=== PATIENT | female | born 1960 | race Caucasian/White ===

== ENCOUNTER 2016-07-10 19:08 | Emergency (ER) | payer OTHER ==
[~2016-07-10] VITALS: Ht 170.2 cm; Wt 58.0 kg
[~2016-07-10 19:08] MED LIST changes: -HYDR-3533 PO; -NOVOLOGSS IMPLANT
[2016-07-10 19:09] VITALS: BP 165/70; PULSE 88; RESP 16; TEMP 98.1; O2SAT 96
--- NOTE | 2016-07-10 20:16 | PD ---
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 She states that her knee swelled up immediately. She took 2 Aleve without relief. She states the pain is moderate but can be more severe with movement and flexing of the knee. She has had some relief with elevation and ice. She denies striking her head. No neck or back pain. No other extremity injury. PFSH Past Medical History Narrative Medical IDDM with insulin pump, hypothyroidism, hypertension, hypercholesterolemia Cancer: No Cardiovascular Problems: No Diabetes: Yes (TYPE I DIABETES) Patient Takes Glucophage: No Endocrine: Yes Genitourinary: No Hepatitis: No Hiatal Hernia: No Hypertension: Yes (SITUATIONAL ) Immune Disorder: No Musculoskeletal: No Neurologic: No Psychiatric: No Reproductive: No Respiratory: No Thyroid Disease: Yes (HYPOTHYROID) Tetanus Vaccination: < 5 Years ?: Not Past Surgical History Narrative Surgical Insulin pump, tonsillectomy, left breast lumpectomy, benign Abdominal Surgery: No AICD: No Body Medical Devices: [employer] INSULIN PUMP Cardiac Surgery: No Ear Surgery: No Endocrine Surgery: No Eye Surgery: No Gynecologic Surgery: No Joint Replacement: No Oral Surgery: Yes (TONSILLECTOMY ) Pacemaker: No Thoracic Surgery: Yes (LEFT BREAST EXCISION FIBROUS TISSUE ) Other Surgery: Yes (LEFT BREAST BIOPSY) Social History Alcohol Use: No Tobacco Use: No Substance Use: No Allergies-Medications (Allergen,Severity, Reaction): Coded Allergies: No Known Allergies (Unverified , 07/10/16) Reported Meds & Prescriptions Reported Meds & Active Scripts Active Lortab (Hydrocodone-Acetaminophen) 5-325 Mg Tab 1 Tab PO Q4H PRN Reported Melatonin 10 Mg Tab 10 Mg PO HS PRN Co Q 10 (Coenzyme Q10 (Ubidecarenone)) 100 Mg Cap EVERY OTHER DAY Vitamin D3 (Cholecalciferol) 2,000 Unit Cap 2,000 Units PO DAILY Lexapro (Escitalopram Oxalate) 10 Mg Tab 15 Mg PO DAILY Estradiol 0.5 Mg Tab 1 Mg PO DAILY Novolog Inj (Insulin Aspart) 1,000 Unit/10 Ml Vial 30 Units SQ sliding scale as directed Synthroid (Levothyroxine Sodium) 88 Mcg Tab 75 Mcg PO DAILY Lisinopril 20 Mg Tab 20 Mg PO DIRECTED saturday, saturday, saturday, saturday Provera (Medroxyprogesterone Acetate) 2.5 Mg Tab 2.5 Mg PO DAILY Start day 21 Zocor (Simvastatin) 20 Mg Tab 20 Mg PO EVERY OTHER DAY Review of Systems Except as stated in HPI: all other systems reviewed are Neg Musculoskeletal: Positive: Arthralgias, Limited ROM, Edema, Pain, No: Myalgias , Weakness, Cramping Physical Exam Narrative GENERAL: Well-developed, well-nourished in no apparent distress. Nontoxic appearing. HEAD: Normocephalic, atraumatic. EYES: Pupils equal round and reactive. Extraocular motions intact. No scleral icterus. No injection or drainage. ENT: Nose clear. Throat without erythema, tonsillar hypertrophy or exudate. Uvula midline. Airway patent. NECK: Trachea midline. Supple, nontender, moves head freely. No central bony tenderness or spasm. CARDIOVASCULAR: Regular rate and rhythm without murmurs, gallops, or rubs. RESPIRATORY: Clear to auscultation. Breath sounds equal bilaterally. No wheezes , rales, or rhonchi. GASTROINTESTINAL: Abdomen soft, non-tender, nondistended. No hepato-splenomegaly , or palpable masses. No guarding. EXTREMITIES: No clubbing, cyanosis. Both upper extremities as well as a left lower extremity is unremarkable for acute bony tenderness or deformity. The right lower extremity reveals a joint effusion in the knee. She has full extension but has limited flexion due to pain. There is no anterior posterior draw. There is no medial lateral collateral ligament instability. She does have pain over the patella. No pain in the hip, ankle or foot. She has intact sensation with good distal pulses. BACK: Nontender without deformity. No flank tenderness. NEUROLOGICAL: Awake, alert and oriented x 3 .Cranial nerves grossly intact. Motor and sensory grossly within normal limits. Normal speech. Data Data Last Documented VS Vital Signs Date Time Temp Pulse Resp B/P Pulse Ox O2 Delivery O2 Flow Rate FiO2 07/10/16 19:09 98.1 88 16 165/70 96 Room Air Orders Knee, Complete (4vws) (07/10/16 20:13) Ice/Cold Pack (07/10/16 20:13) Splint Or Brace Apply/Monitor (07/10/16 20:43) Crutches (07/10/16 20:43) Acetamin-Hydrocod 325-5 Mg ([place] 5-325 (07/10/16 20:45) MDM Medical Decision Making Medical Screen Exam Complete: Yes Emergency Medical Condition: Yes Medical Record Reviewed: Yes Interpretation(s) Right knee: Positive patellar fracture with slight distraction in joint effusion. Differential Diagnosis MDM: High Differential diagnoses: Fracture, sprain, strain, dislocation, contusion, neurovascular injury Narrative Course X-ray of the right knee, ice pack applied. X-ray reveals a patellar fracture. Patient placed in a CKS, crutches, Lortab 5 a grams by mouth for pain. This right patellar fracture Diagnosis Primary Impression: Right patella fracture Patient Instructions: General Instructions Departure Forms: Tests/Procedures, Work Release Special Instructions: No work 3 days. Additional Instructions: Rest. Elevation. Ice packs for the next 3 days. Knee immobilizer and crutches. No weight-bearing. Medications as directed Follow-up with an orthopedist within the next 2-3 days. Return to the ER if any problems Med/Other Pt SpecificInfo: Prescription(s) given Scripts Hydrocodone-Acetaminophen (Lortab)5-325 Mg Tab1 Tab PO Q4H PRN (PAIN) #20 TAB Prov:Elmer Abel MD 07/10/16 Disposition: 01 DISCHARGE HOME Condition: Stable Pedro Christopher Jul 10, 2016 20:16
--- NOTE | 2016-07-10 20:38 | RADRPT ---
EXAM DATE/TIME: 07/10/2016 20:29 [facility] COMPARISON: No previous studies available for comparison. INDICATIONS : Fell today. MEDICAL HISTORY : None. SURGICAL HISTORY : None. ENCOUNTER: Initial ACUITY: 1 day PAIN SCORE: 2/10 LOCATION: Right anterior knee FINDINGS: Slightly distracted comminuted fracture of the patella with lipohemarthrosis. No other fractures are seen. Normal bone density. CONCLUSION: Patellar fracture with associated effusion. Kenton Garcia MD on July 10, 2016 at 20:37 Board Certified Radiologist. This report was verified electronically.
[2016-07-10] MEDS ORDERED: HYDR-3533 PO (20:43)
[2016-07-10] MEDS ORDERED: ACETAMINOPHEN/HYDROcodone 325 MG/5 MG TAB PO ONE (20:45)
[2016-12-25] MEDS ORDERED: NOVOLOGSS IMPLANT (17:21)
== END 2016-07-10 21:33 | disposition home or self-care (01) ==
LOC: NEPB 19:08
DX: S82.001A Unspecified fracture of right patella, initial encounter for closed fracture (principal); W01.0XXA Fall on same level from slipping, tripping and stumbling without subsequent striking against object, initial encounter
CPT/HCPCS: 73564; 99283; E0113; L1830

== ENCOUNTER → 2016-07-10 | Outpatient (CLI) | payer OTHER ==
[~2016-07-10] MED LIST: CO Q100C9; ESTR0.5T PO; HYDR-3533 PO; LEXA10TA PO; LISI-515 PO; MEDR2.5 PO; MELA1TAB18 PO; NOVOLOGP2 SQ; NOVOLOGSS IMPLANT; SYNT88TA PO; VITA2000 PO; ZOCO20TA PO
[2016-07-10 07:47] LABS: AUTOMATED NEUTROPHIL # 2.4 TH/MM3 (1.8-7.7); BASOPHIL % 0.4 % (0.0-2.0); EOSINOPHIL # 0.1 TH/MM3 (0-0.4); EOSINOPHIL % 3.1 % (0.0-4.0); HEMO FLAGS DIFF FINAL; LYMPH % 31.3 % (9.0-44.0); LYMPHOCYTE # 1.3 TH/MM3 (1.0-4.8); MEAN CELL VOLUME 87.8 FL (80.0-100.0); MEAN CORPUSCULAR HEMOGLOBIN 29.1 PG (27.0-34.0); MEAN CORPUSCULAR HGB CONC 33.1 % (32.0-36.0); MONO % 7.4 % (0.0-8.0); NEUT % 57.8 % (16.0-70.0); PLATELET COUNT 225 TH/MM3 (150-450); RED BLOOD COUNT 4.56 MIL/MM3 (4.00-5.30); RED CELL DISTRIBUTION WIDTH 13.5 % (11.6-17.2); WHITE BLOOD COUNT 4.1 TH/MM3 (4.0-11.0)
[2016-07-10 07:48] LABS: BLOOD, URINE NEG (NEG); GLUCOSE,URINE NEG (NEG); KETONE, URINE NEG (NEG); MUCUS URINE FEW /lpf (OCC); NITRITE,URINE NEG (NEG); PH, URINE 5.5 (5.0-8.5); SQUAMOUS EPITHELIAL CELL URINE 1 /hpf (0-5); URINE COLOR YELLOW (YELLW/STRAW)
[2016-07-10 07:49] LABS: COMMENT (UR) CULT NOT INDICATED; CULTURE IF INDICATED CULT NOT INDICATED
[2016-07-10 08:23] LABS: ALKALINE PHOSPHATASE 91 U/L (45-117); ALT (GPT) 18 U/L (10-53); ANION GAP 7 MEQ/L (5-15); AST (GOT) 10 U/L (15-37); BICARBONATE 30.9 MEQ/L (21.0-32.0); BLOOD UREA NITROGEN 15 MG/DL (7-18); CHLORIDE 101 MEQ/L (98-107); FREE T4 1.19 NG/DL (0.76-1.46); GLOMERULAR FILTRATION RATE 95 ML/MIN (>89); GLUCOSE,FASTING 138 MG/DL (74-99); HDL CHOLESTEROL 110.9 MG/DL (40.0-60.0); LDL CHOLESTEROL 92 MG/DL (0-99); POTASSIUM 3.7 MEQ/L (3.5-5.1); SODIUM (NA) 139 MEQ/L (136-145); TOTAL BILIRUBIN ADULT 0.5 MG/DL (0.2-1.0)
[2016-07-10 14:14] LABS: HEMOGLOBIN A1b 0.7 %; HEMOGLOBIN Ao 83.9 %; HEMOGLOBIN F 0.9 %; HEMOGLOBIN LA1C 2.1 %; HEMOGLOBIN P3 3.9 %
== END ==
LOC: CLAB 07:13
PROVIDERS: ATTEND Internal Medicine
DX: E11.9 Type 2 diabetes mellitus without complications (principal); E78.00 Pure hypercholesterolemia, unspecified; E03.9 Hypothyroidism, unspecified
CPT/HCPCS: 36415; 80053; 80061; 81001; 82043; 83036; 84439; 84443; 85025

== ENCOUNTER → 2016-12-25 | Outpatient (CLI) | payer OTHER ==
[~2016-12-25] MED LIST changes: +NOVOLOGSS IMPLANT
[2016-12-25 07:51] LABS: HEMATOCRIT 38.4 % (35.0-46.0); MEAN CELL VOLUME 88.4 FL (80.0-100.0); MEAN CORPUSCULAR HEMOGLOBIN 29.4 PG (27.0-34.0); MEAN CORPUSCULAR HGB CONC 33.3 % (32.0-36.0); PLATELET COUNT 262 TH/MM3 (150-450); RED BLOOD COUNT 4.34 MIL/MM3 (4.00-5.30); RED CELL DISTRIBUTION WIDTH 14.1 % (11.6-17.2); REVIEW FLAG FINAL; WHITE BLOOD COUNT 4.1 TH/MM3 (4.0-11.0)
[2016-12-25 08:13] LABS: ANION GAP 5 MEQ/L (5-15); BLOOD UREA NITROGEN 13 MG/DL (7-18); CHLORIDE 102 MEQ/L (98-107); GLOMERULAR FILTRATION RATE 95 ML/MIN (>89); GLUCOSE,FASTING 184 MG/DL (74-99); RHEUMATOID FACTOR TRIGGER LESS THAN 10.0 IU/ML (0.0-14.9); SODIUM (NA) 138 MEQ/L (136-145)
[2016-12-25 08:36] LABS: CREATINE KINASE 54 U/L (26-192)
== END ==
LOC: CLAB 07:28
PROVIDERS: ATTEND Physical Medicine & Rehabilitation
DX: M25.50 Pain in unspecified joint (principal)
CPT/HCPCS: 36415; 80048; 82550; 85027; 86140; 86430

== ENCOUNTER → 2017-01-21 | Outpatient (CLI) | payer OTHER ==
[~2017-01-21] MED LIST changes: +DICL75TA PO; +MEDR4PAK PO
[2017-01-21 08:04] LABS: ANION GAP 6 MEQ/L (5-15); AST (GOT) 13 U/L (15-37); BICARBONATE 28.4 MEQ/L (21.0-32.0); BLOOD UREA NITROGEN 19 MG/DL (7-18); CHLORIDE 104 MEQ/L (98-107); GLOMERULAR FILTRATION RATE 93 ML/MIN (>89); GLUCOSE,FASTING 129 MG/DL (74-99); POTASSIUM 3.7 MEQ/L (3.5-5.1); SODIUM (NA) 138 MEQ/L (136-145)
[2017-01-21 08:05] LABS: ALT (GPT) 19 U/L (10-53)
[2017-01-21 08:07] LABS: ALKALINE PHOSPHATASE 78 U/L (45-117); HDL CHOLESTEROL 101.5 MG/DL (40.0-60.0); LDL CHOLESTEROL 112 MG/DL (0-99); TOTAL BILIRUBIN ADULT 0.6 MG/DL (0.2-1.0)
[2017-01-21 18:32] LABS: HEMOGLOBIN A1b 1.8 %; HEMOGLOBIN Ao 83.4 %; HEMOGLOBIN LA1C 2.1 %; HEMOGLOBIN P3 4.2 %
== END ==
LOC: CLAB 07:13
PROVIDERS: ATTEND Internal Medicine
DX: E10.9 Type 1 diabetes mellitus without complications (principal)
CPT/HCPCS: 36415; 80053; 80061; 83036

== ENCOUNTER → 2017-01-25 | Outpatient (CLI) | payer OTHER ==
[2017-01-25 13:37] LABS: AUTOMATED NEUTROPHIL # 3.1 TH/MM3 (1.8-7.7); BASOPHIL % 0.6 % (0.0-2.0); EOSINOPHIL # 0.1 TH/MM3 (0-0.4); EOSINOPHIL % 1.6 % (0.0-4.0); HEMATOCRIT 36.6 % (35.0-46.0); HEMO FLAGS DIFF FINAL; LYMPH % 23.3 % (9.0-44.0); LYMPHOCYTE # 1.1 TH/MM3 (1.0-4.8); MEAN CELL VOLUME 89.3 FL (80.0-100.0); MEAN CORPUSCULAR HEMOGLOBIN 30.3 PG (27.0-34.0); MEAN CORPUSCULAR HGB CONC 33.9 % (32.0-36.0); MONO % 7.7 % (0.0-8.0); NEUT % 66.8 % (16.0-70.0); PLATELET COUNT 249 TH/MM3 (150-450); RED CELL DISTRIBUTION WIDTH 13.7 % (11.6-17.2); WHITE BLOOD COUNT 4.7 TH/MM3 (4.0-11.0)
[2017-01-25 13:50] LABS: RHEUMATOID FACTOR TRIGGER LESS THAN 10.0 IU/ML (0.0-14.9)
[2017-01-25 13:51] LABS: ANION GAP 7 MEQ/L (5-15); AST (GOT) 16 U/L (15-37); BICARBONATE 26.4 MEQ/L (21.0-32.0); BLOOD UREA NITROGEN 15 MG/DL (7-18); CHLORIDE 102 MEQ/L (98-107); GLOMERULAR FILTRATION RATE 108 ML/MIN (>89); GLUCOSE,FASTING 115 MG/DL (74-99); POTASSIUM 3.6 MEQ/L (3.5-5.1); SODIUM (NA) 135 MEQ/L (136-145)
[2017-01-25 13:52] LABS: ALT (GPT) 19 U/L (10-53)
[2017-01-25 13:55] LABS: ALKALINE PHOSPHATASE 83 U/L (45-117); TOTAL BILIRUBIN ADULT 0.6 MG/DL (0.2-1.0)
[2017-01-25 13:59] LABS: BLOOD, URINE NEG (NEG); GLUCOSE,URINE NEG (NEG); KETONE, URINE NEG (NEG); MUCUS URINE FEW /lpf (OCC); NITRITE,URINE NEG (NEG); PH, URINE 5.5 (5.0-8.5); SQUAMOUS EPITHELIAL CELL URINE <1 /hpf (0-5); URINE COLOR YELLOW (YELLW/STRAW)
[2017-01-25 13:59] LABS: CREATINE KINASE 68 U/L (26-192)
[2017-01-25 14:21] LABS: WESTERGREN SEDIMENTATION RATE 8 mm/hr (0-30)
== END ==
LOC: CLAB 12:45
PROVIDERS: ATTEND Allergy & Immunology
DX: Z13.828 Encounter for screening for other musculoskeletal disorder (principal)
CPT/HCPCS: 36415; 80053; 81001; 82550; 85025; 85652; 86140; 86200; 86255; 86430

== ENCOUNTER → 2017-02-15 | Day surgery (SDC) | payer OTHER ==
[~2017-02-15] VITALS: Ht 170.2 cm; Wt 60.5 kg
[~2017-02-15] MED LIST changes: +BUPIVACAINE HCL PF 0.5% 30 ML VIAL ONE; +CHLORHEXIDINE GLUCONATE 2 % 1 PACK (2 CLOTHS) TOPICAL PRN; +DEXAMETHASONE SOD PHOS 4 MG/ML VIAL ONE; +DEXT 5%-NACL 0.45% 1000 ML INJ 1,000 ML IV SCH; +FAMOTIDINE 20 MG/2 ML VIAL ONE; +INSULIN HUMAN REGULAR 1,000 UNITS/10 ML VIAL SQ PRN; +LACTATED RINGER'S 1000 ML INJ 1,000 ML IV ONE; +LACTATED RINGER'S 1000 ML IV PRN; +METOPROLOL TARTRATE 25 MG TAB PO PRN; +MIDAZOLAM HCL 2 MG/2 ML VIAL ONE; +ONDANSETRON HCL 4 MG/2 ML VIAL IV PUSH ONE; +POVIDONE IODINE 5% (ANTISEPSIS KIT) 4 APPLICATIONS EACH NARE PRN; +PROPOFOL 200 MG/20 ML AMP IV ONE; +SODIUM CHLORID 0.9% 500 ML IV PRN; +SODIUM CHLORIDE 0.9% FLUSH 5 ML FLUSH IVF PRN; +SODIUM CHLORIDE 0.9% FLUSH 5 ML FLUSH IVF SCH; +ceFAZolin 2 GM PREMIX 50 ML IV PRN
[2017-02-15 08:10] VITALS: BP 150/88; PULSE 79; RESP 16; TEMP 97.8; O2SAT 100
--- NOTE | 2017-02-15 09:55 | HP.UPD ---
H&P Update Date: Feb 15, 2017 Note The Pre-Admit History and Physical Examination regarding the above named patient was reviewed (including, but not limited to, vital signs, medications, allergies, co-morbid conditions), and upon re-examination it is noted that: Indicated with "X" x - the patient's condition has not significantly changed since the last examination. [] - the patient's condition has changed since the last examination. Changes: Damari Campbell MD Feb 15, 2017 09:50
[2017-02-15 11:30] VITALS: PULSE 80
--- NOTE | 2017-02-15 11:31 | HHI.PR ---
Immediate Post Op Note Procedure Date: Feb 15, 2017 Pre Op Diagnosis: (1) De Quervain's tenosynovitis Post Op Diagnosis: (1) De Quervain's tenosynovitis Surgeon: Damari Campbell Rehab Specialist(s): None Procedure: Release of the right and left first dorsal compartments. Specimen(s) removed: Synovium from the first dorsal compartment, left. Anesthesia: General Drains: None Tourniquet time (min at mmHg) 15 minutes left (pneumatic) and 14 minutes right (Hemaclear). Patient to: PACU Patient Condition: Good Date/Time of Procedure: SEE SURGICAL CARE RECORD Damari Campbell MD Feb 15, 2017 11:31
[2017-02-15 12:15] VITALS: BP 140/69; PULSE 89; RESP 14; TEMP 97.4; O2SAT 100
--- NOTE | 2017-02-16 07:44 | MP ---
cc: CATA HOFFMANN M.D. DATE OF SURGERY: 02/15/2017 PREOPERATIVE DIAGNOSIS: 1. De Quervain's tenosynovitis of the left wrist. 2. De Quervain's tenosynovitis of the right wrist. POSTOPERATIVE DIAGNOSIS: 1. De Quervain's tenosynovitis of the left wrist. 2. De Quervain's tenosynovitis of the right wrist. OPERATION: 1. Release of the left first dorsal compartment. 2. Release of the right first dorsal compartment. ANESTHESIA: General. SURGEON Dr. Hoffmann INDICATIONS 56-year-old female with history of type 1 diabetes for over 40 years. The patient although she has been well-controlled recently developed inflammatory condition which is presently being worked up. Initial results are negative. FINDINGS The de Quervain's tenosynovitis was secondary to synovitis bilaterally. There is no evidence of thickening of the tendon sheaths. The completion of the procedure both compartments were released. The first dorsal compartment on each side did not have a significant second compartment of extensor pollicis brevis. They both had evidence of significant synovitis and synovectomy was performed on both sides. The tourniquet time was 15 minutes of the left, 14 minutes of the right. A pneumatic cuff was used on the left, right a hemoclip was used. PROCEDURE The patient was seen preoperatively where the sites and sides were identified and marked. The patient was then taken to the operating room, placed in supine position. Her identity was checked against the arm band and the consent form site and side confirmed, time-out called prior to beginning procedure both upper extremity prepped with Hibiclens and draped in usual sterile fashion. Attention was first turned to left side were transverse incision was designed over the first dorsal compartment. The arm was then exsanguinated and tourniquet inflated to 220 mmHg #15 blade was then used make a transverse incision approximately 1.5 cm in length over the first dorsal compartment. Under loupe magnification using sharp and blunt dissection superficial vessels and nerves identified and retracted exposing first dorsal compartment. The compartment was opened and it was noted that the sheath itself was normal in thickness but there was a significant amount of synovitis over the tendons. After opening of the compartment. The extensor pollicis brevis was identified and did not appear to have a second compartment. A synovectomy was performed and tissue was sent for specimen and permanent sections. The wound was then copiously irrigated with saline injected with bupivacaine 0.5% plain and closed with 4-0 Vicryl to the dermal layer and Dermabond to the skin. Once the glue had dried in several layers Steri-Strips were applied along with 4x4s and an Mark bandage. The tourniquet was released after 50 minutes of tourniquet time. Attention was then turned to the right side were transverse incision was designed over the first dorsal compartment. The hand and forearm were simultaneously exsanguinated and tourniquet placed using a hemaclear. A #15 blade was used make incision down through skin down to the subcutaneous tissue under loupe magnification. Using sharp and blunt dissection superficial vessels and nerves identified and retracted exposing first dorsal compartment. The first dorsal compartment was then opened again was noted that the sheath itself was thin. There was significant amount of synovitis present and the synovium was removed. Within the first dorsal compartment there was no evidence of a separate compartment for the extensor pollicis brevis. The wound was then copiously irrigated with saline injected with bupivacaine 0.5% plain and closed in layers with 4-0 Vicryl and Dermabond. Once the glue had dried in several layers Steri-Strips were applied. We used dry dressing using 4x4s hand wrap and a thumb spica splint. The tourniquet was released. Once the Steri-Strips were in place, after 14 minutes of tourniquet time. Pressure was applied. After several minutes there was no evidence of any oozing or swelling in the dressing was applied as noted above. Attention was then back turned to the left arm where the MARK bandage was removed and the gauze was left in place along with hand wrap and a thumb spica splint. The patient was then taken from the operating room to the recovery room in satisfactory condition having tolerated the procedure well. Postoperative instructions include keeping arm elevated, keeping it clean and dry and returning next week for follow up. The patient will take home medications such as Advil for pain relief. MD SARKIS Magallon/bright /11:31 AM /7:31 AM
== END | disposition home or self-care (01) ==
LOC: PHSDC 07:14
PROVIDERS: ATTEND Specialist
DX: M65.4 Radial styloid tenosynovitis [de Quervain] (principal); I10 Essential (primary) hypertension; E11.9 Type 2 diabetes mellitus without complications; E03.9 Hypothyroidism, unspecified; E78.5 Hyperlipidemia, unspecified; Z79.4 Long term (current) use of insulin; Z79.899 Other long term (current) drug therapy; Z96.41 Presence of insulin pump (external) (internal)
CPT/HCPCS: 01810; 25000; 82948; 88305; J0690; J1100; J2250; J2405; J3010; J7120

== ENCOUNTER → 2017-02-27 | Outpatient (CLI) | payer OTHER ==
[~2017-02-27] MED LIST changes: -BUPIVACAINE HCL PF 0.5% 30 ML VIAL ONE; -CHLORHEXIDINE GLUCONATE 2 % 1 PACK (2 CLOTHS) TOPICAL PRN; -DEXAMETHASONE SOD PHOS 4 MG/ML VIAL ONE; -DEXT 5%-NACL 0.45% 1000 ML INJ 1,000 ML IV SCH; -ESTR0.5T PO; -FAMOTIDINE 20 MG/2 ML VIAL ONE; -INSULIN HUMAN REGULAR 1,000 UNITS/10 ML VIAL SQ PRN; -LACTATED RINGER'S 1000 ML INJ 1,000 ML IV ONE; -LACTATED RINGER'S 1000 ML IV PRN; -MEDR2.5 PO; -MEDR4PAK PO; -METOPROLOL TARTRATE 25 MG TAB PO PRN; -MIDAZOLAM HCL 2 MG/2 ML VIAL ONE; -NOVOLOGP2 SQ; -ONDANSETRON HCL 4 MG/2 ML VIAL IV PUSH ONE; -POVIDONE IODINE 5% (ANTISEPSIS KIT) 4 APPLICATIONS EACH NARE PRN; -PROPOFOL 200 MG/20 ML AMP IV ONE; -SODIUM CHLORID 0.9% 500 ML IV PRN; -SODIUM CHLORIDE 0.9% FLUSH 5 ML FLUSH IVF PRN; -SODIUM CHLORIDE 0.9% FLUSH 5 ML FLUSH IVF SCH; -ceFAZolin 2 GM PREMIX 50 ML IV PRN
[2017-02-27 16:05] LABS: ALT (GPT) 15 U/L (10-53); ANION GAP 4 MEQ/L (5-15); AST (GOT) 11 U/L (15-37); BICARBONATE 30.7 MEQ/L (21.0-32.0); BLOOD UREA NITROGEN 21 MG/DL (7-18); CHLORIDE 102 MEQ/L (98-107); GLOMERULAR FILTRATION RATE 106 ML/MIN (>89); GLUCOSE,FASTING 165 MG/DL (74-99); POTASSIUM 3.6 MEQ/L (3.5-5.1); SODIUM (NA) 137 MEQ/L (136-145)
[2017-02-27 16:06] LABS: ALKALINE PHOSPHATASE 94 U/L (45-117); TOTAL BILIRUBIN ADULT 0.3 MG/DL (0.2-1.0)
[2017-02-27 16:07] LABS: RHEUMATOID FACTOR TRIGGER LESS THAN 10.0 IU/ML (0.0-14.9)
[2017-02-27 16:09] LABS: BASOPHIL % 0.4 % (0.0-2.0); EOSINOPHIL # 0.1 TH/MM3 (0-0.4); EOSINOPHIL % 2.3 % (0.0-4.0); HEMATOCRIT 36.8 % (35.0-46.0); HEMO FLAGS DIFF FINAL; LYMPH % 13.4 % (9.0-44.0); LYMPHOCYTE # 0.7 TH/MM3 (1.0-4.8); MEAN CORPUSCULAR HEMOGLOBIN 29.5 PG (27.0-34.0); MEAN CORPUSCULAR HGB CONC 32.4 % (32.0-36.0); NEUT % 73.9 % (16.0-70.0); PLATELET COUNT 236 TH/MM3 (150-450); RED BLOOD COUNT 4.05 MIL/MM3 (4.00-5.30); RED CELL DISTRIBUTION WIDTH 13.4 % (11.6-17.2); WHITE BLOOD COUNT 5.4 TH/MM3 (4.0-11.0)
[2017-02-27 16:55] LABS: WESTERGREN SEDIMENTATION RATE 16 mm/hr (0-30)
[2017-02-28 10:36] LABS: HEPATITIS B SURFACE ANTIBODY 32.9 mIU/mL
[2017-03-01 13:31] LABS: ANA SCREEN POS (NEG)
[2017-03-01 23:52] LABS: THYROGLOB ABS LESS THAN 1 IU/mL (< OR = 1)
== END ==
LOC: CLAB 14:55
DX: M19.90 Unspecified osteoarthritis, unspecified site (principal)
CPT/HCPCS: 36415; 80053; 85025; 85652; 86038; 86039; 86140; 86200; 86317; 86376; 86430; 86800; 86803; 87340

== ENCOUNTER → 2017-03-19 | Outpatient (CLI) | payer OTHER ==
[2017-03-19 08:04] LABS: HEMATOCRIT 37.5 % (35.0-46.0); MEAN CELL VOLUME 90.2 FL (80.0-100.0); MEAN CORPUSCULAR HEMOGLOBIN 30.1 PG (27.0-34.0); MEAN CORPUSCULAR HGB CONC 33.4 % (32.0-36.0); PLATELET COUNT 236 TH/MM3 (150-450); RED BLOOD COUNT 4.15 MIL/MM3 (4.00-5.30); RED CELL DISTRIBUTION WIDTH 12.8 % (11.6-17.2); REVIEW FLAG FINAL; WHITE BLOOD COUNT 4.8 TH/MM3 (4.0-11.0)
[2017-03-19 08:22] LABS: BICARBONATE 31.4 MEQ/L (21.0-32.0); POTASSIUM 3.7 MEQ/L (3.5-5.1)
[2017-03-19 08:26] LABS: INDIRECT BILIRUBIN 0.3 MG/DL (0.0-0.8); TOTAL BILIRUBIN ADULT 0.4 MG/DL (0.2-1.0)
== END ==
LOC: CLAB 07:26
DX: M19.90 Unspecified osteoarthritis, unspecified site (principal)
CPT/HCPCS: 36415; 80048; 80076; 85027

== ENCOUNTER → 2017-04-08 | Outpatient (CLI) | payer OTHER ==
[~2017-04-08] MED LIST changes: +FISH100020 PO; +FOLI1TAB6 PO; +LEVO75TA3 PO; +METH2.5T PO; +PLAQ200T PO; +PRED2.5T PO; +PREV30CA36 PO; +VITA500T83 PO
[2017-04-08 08:33] LABS: AUTOMATED NEUTROPHIL # 4.6 TH/MM3 (1.8-7.7); BASOPHIL % 0.6 % (0.0-2.0); EOSINOPHIL # 0.2 TH/MM3 (0-0.4); EOSINOPHIL % 2.3 % (0.0-4.0); HEMATOCRIT 36.3 % (35.0-46.0); HEMO FLAGS DIFF FINAL; LYMPH % 22.4 % (9.0-44.0); LYMPHOCYTE # 1.5 TH/MM3 (1.0-4.8); MEAN CELL VOLUME 90.1 FL (80.0-100.0); MEAN CORPUSCULAR HGB CONC 34.4 % (32.0-36.0); MONO % 7.9 % (0.0-8.0); NEUT % 66.8 % (16.0-70.0); PLATELET COUNT 247 TH/MM3 (150-450); RED BLOOD COUNT 4.03 MIL/MM3 (4.00-5.30); RED CELL DISTRIBUTION WIDTH 13.6 % (11.6-17.2); WHITE BLOOD COUNT 6.9 TH/MM3 (4.0-11.0)
[2017-04-08 08:51] LABS: ALT (GPT) 17 U/L (10-53); ANION GAP 6 MEQ/L (5-15); AST (GOT) 8 U/L (15-37); BICARBONATE 29.1 MEQ/L (21.0-32.0); BLOOD UREA NITROGEN 15 MG/DL (7-18); CHLORIDE 102 MEQ/L (98-107); GLOMERULAR FILTRATION RATE 86 ML/MIN (>89); GLUCOSE,FASTING 224 MG/DL (74-99); POTASSIUM 3.4 MEQ/L (3.5-5.1); SODIUM (NA) 137 MEQ/L (136-145)
[2017-04-08 08:53] LABS: ALKALINE PHOSPHATASE 84 U/L (45-117); TOTAL BILIRUBIN ADULT 0.3 MG/DL (0.2-1.0)
== END ==
LOC: CLAB 07:59
DX: M06.9 Rheumatoid arthritis, unspecified (principal)
CPT/HCPCS: 36415; 80053; 85025

== ENCOUNTER → 2017-05-20 | Outpatient (CLI) | payer OTHER ==
[~2017-05-20] MED LIST changes: -FISH100020 PO; -LEVO75TA3 PO; -PREV30CA36 PO; -VITA500T83 PO
[2017-05-20 09:17] LABS: AUTOMATED NEUTROPHIL # 2.9 TH/MM3 (1.8-7.7); BASOPHIL % 0.4 % (0.0-2.0); EOSINOPHIL # 0.1 TH/MM3 (0-0.4); EOSINOPHIL % 1.7 % (0.0-4.0); HEMATOCRIT 36.2 % (35.0-46.0); HEMO FLAGS DIFF FINAL; LYMPH % 20.5 % (9.0-44.0); LYMPHOCYTE # 0.9 TH/MM3 (1.0-4.8); MEAN CELL VOLUME 90.5 FL (80.0-100.0); MEAN CORPUSCULAR HEMOGLOBIN 29.8 PG (27.0-34.0); MONO % 11.2 % (0.0-8.0); NEUT % 66.2 % (16.0-70.0); PLATELET COUNT 264 TH/MM3 (150-450); RED CELL DISTRIBUTION WIDTH 14.9 % (11.6-17.2); WHITE BLOOD COUNT 4.5 TH/MM3 (4.0-11.0)
== END ==
LOC: CLAB 08:53
PROVIDERS: ATTEND Orthopaedic Surgery Hand Surgery
DX: I10 Essential (primary) hypertension (principal)
CPT/HCPCS: 36415; 85025

== ENCOUNTER → 2017-05-31 | Day surgery (SDC) | payer OTHER ==
[~2017-05-31] VITALS: Ht 170.2 cm; Wt 60.0 kg
[~2017-05-31] MED LIST changes: +ACETAMINOPHEN 1000 MG/100 ML 100 ML IV ONE; +BACITRACIN TOP OINT 15 GM TUBE ONE; +BUPIVACAINE HCL PF 0.5% 30 ML VIAL ONE; +CHLORHEXIDINE GLUCONATE 2 % 1 PACK (2 CLOTHS) TOPICAL PRN; +FISH100020 PO; +LACTATED RINGER'S 1000 ML INJ 1,000 ML IV SCH; +LACTATED RINGER'S 1000 ML IV PRN; +LEVO75TA3 PO; +METOPROLOL TARTRATE 25 MG TAB PO PRN; +NEOMYCIN/POLYMYXIN 1 ML G.U. IRRIGANT ONE; +POVIDONE IODINE 5% (ANTISEPSIS KIT) 4 APPLICATIONS EACH NARE PRN; -PRED2.5T PO; +PREV30CA36 PO; +PROPOFOL 200 MG/20 ML AMP ONE; +SODIUM CHLORID 0.9% 500 ML IV PRN; -SYNT88TA PO; +TRIAMCINOLONE ACETONIDE 40 MG/ML VIAL ONE; +VITA500T83 PO; +ceFAZolin 1,000 MG/NS 100 ML IV SCH
[2017-05-31] MEDS: LIDOCAINE HCL 2% 50 ML VIAL ONE (08:48)
[2017-05-31 11:00] VITALS: BP 116/63; PULSE 72; RESP 16; TEMP 97.8; O2SAT 99
--- NOTE | 2017-06-02 08:57 | MP ---
cc: MARK PETTIT M.D. DATE OF SURGERY: 05/31/2017 PREOPERATIVE DIAGNOSIS: Rheumatoid arthritis and right carpal tunnel syndrome with flexor tenosynovitis right index, middle and small fingers and trigger fingers of these fingers. POSTOPERATIVE DIAGNOSIS: Rheumatoid arthritis and right carpal tunnel syndrome with flexor tenosynovitis right index, middle and small fingers and trigger fingers of these fingers. PROCEDURE: Open right carpal tunnel release and flexor tenosynovectomy right index, middle and small fingers, excise ulnar slips of the flexor digitorum superficialis of these fingers. ANESTHESIA Local with MAC. TOURNIQUET TIME 64 minutes INDICATIONS Ms. Barber is a 56-year-old woman with symptomatic right carpal tunnel syndrome and flexor tenosynovitis of her right index, middle and small fingers with triggering. She has nerve conduction evidence of carpal tunnel syndrome and also rheumatoid arthritis. She is brought to the operating room for definitive treatment. DESCRIPTION OF PROCEDURE: After proper consent was obtained, the patient was brought to the operating room, where appropriate identification of the patient and review of the operative consent proceeded with the surgical team. A tourniquet was placed on her right arm. MAC anesthesia was performed by the [employer] and student reimbursement consultant. Her right hand and forearm were prepped and draped in the usual sterile fashion with Hibiclens. Using 10 mL of 2% lidocaine and 10 mL of 0.5% Marcaine, local anesthesia was infiltrated about her distal right forearm, palm, and base of the right index, middle and small fingers. Her hand and forearm were exsanguinated with an Mark wrap and tourniquet inflated to 250 mmHg where it remained for the next 64 minutes. A longitudinal incision made just ulnar to the thenar crease in the right palm 3 cm in length. Blunt dissection proceeded with tenotomy scissors and hemostasis with bipolar cautery. The transcarpal ligament was identified and released sharply with a 15 blade just radial to the tip of the hamate and distally with tenotomy scissors and proximal and distal brachial fascia was dissected superficial and dorsal with tenotomy scissors and released bluntly with tenotomy scissors. The median nerve appeared to be moderately compressed but there were no masses palpable or visible in the carpal tunnel and really no evidence of significant tenosynovitis in the carpal tunnel, so I did not extend the incision to do a tenosynovectomy. The wound was closed with 5-0 nylon in interrupted fashion and attention turned to the base of the index, middle and small fingers. Kalyan incisions were made there and blunt dissection proceeded with tenotomy scissors and hemostasis with the bipolar cautery. There was a significant amount of flexor tenosynovitis around the flexor tendons and preserving the flexor sheath, I did a tenosynovectomy from the PIP joint to the mid palm in each of these fingers and there was still significant tightness of the fingers with passive flexion and extension of the fingers, so for each of these fingers I removed the ulnar slip of the superficialis tendon and tendon gliding with easy passive flexion and extension of the fingers. The wounds were closed with 5-0 nylon in interrupted fashion. Bacitracin ointment, Adaptic placed on the wounds and a bulky hand dressing with 4x4s, 3 inch Maddi, Sof-Rol and Mark wrap. The tourniquet was deflated after 64 minutes and the fingers pinked up immediately. The patient was taken to the Recovery Room in good condition having tolerated the procedure well. Estimated blood loss less than 10 mL. MD MARY Guy/ESHA /8:09 AM /8:27 AM
== END | disposition home or self-care (01) ==
LOC: PHSDC 06:29
PROVIDERS: ATTEND Orthopaedic Surgery Hand Surgery
DX: G56.01 Carpal tunnel syndrome, right upper limb (principal); M06.9 Rheumatoid arthritis, unspecified; M65.841 Other synovitis and tenosynovitis, right hand; M65.321 Trigger finger, right index finger; M65.331 Trigger finger, right middle finger; M65.351 Trigger finger, right little finger; I10 Essential (primary) hypertension; Z79.899 Other long term (current) drug therapy; Z79.84 Long term (current) use of oral hypoglycemic drugs
CPT/HCPCS: 01810; 26055; 64721; 82948; 88305; J0131; J0690; J7120; J3301

== ENCOUNTER → 2017-06-11 | Outpatient (CLI) | payer OTHER ==
[~2017-06-11] MED LIST changes: -ACETAMINOPHEN 1000 MG/100 ML 100 ML IV ONE; -BACITRACIN TOP OINT 15 GM TUBE ONE; -BUPIVACAINE HCL PF 0.5% 30 ML VIAL ONE; -CHLORHEXIDINE GLUCONATE 2 % 1 PACK (2 CLOTHS) TOPICAL PRN; -DICL75TA PO; -LACTATED RINGER'S 1000 ML INJ 1,000 ML IV SCH; -LACTATED RINGER'S 1000 ML IV PRN; -METOPROLOL TARTRATE 25 MG TAB PO PRN; -NEOMYCIN/POLYMYXIN 1 ML G.U. IRRIGANT ONE; -POVIDONE IODINE 5% (ANTISEPSIS KIT) 4 APPLICATIONS EACH NARE PRN; -PREV30CA36 PO; -PROPOFOL 200 MG/20 ML AMP ONE; -SODIUM CHLORID 0.9% 500 ML IV PRN; -TRIAMCINOLONE ACETONIDE 40 MG/ML VIAL ONE; -ceFAZolin 1,000 MG/NS 100 ML IV SCH
[2017-06-11 08:47] LABS: BASOPHIL % 0.8 % (0.0-2.0); EOSINOPHIL # 0.1 TH/MM3 (0-0.4); EOSINOPHIL % 2.2 % (0.0-4.0); HEMATOCRIT 33.9 % (35.0-46.0); HEMO FLAGS DIFF FINAL; LYMPH % 19.5 % (9.0-44.0); LYMPHOCYTE # 0.8 TH/MM3 (1.0-4.8); MEAN CELL VOLUME 90.1 FL (80.0-100.0); MEAN CORPUSCULAR HEMOGLOBIN 30.5 PG (27.0-34.0); MEAN CORPUSCULAR HGB CONC 33.8 % (32.0-36.0); NEUT % 69.5 % (16.0-70.0); PLATELET COUNT 327 TH/MM3 (150-450); RED BLOOD COUNT 3.76 MIL/MM3 (4.00-5.30); RED CELL DISTRIBUTION WIDTH 14.7 % (11.6-17.2); WHITE BLOOD COUNT 4.3 TH/MM3 (4.0-11.0)
[2017-06-11 09:12] LABS: ALKALINE PHOSPHATASE 88 U/L (45-117); ALT (GPT) 15 U/L (10-53); TOTAL BILIRUBIN ADULT 0.3 MG/DL (0.2-1.0)
[2017-06-11 09:14] LABS: ANION GAP 7 MEQ/L (5-15); AST (GOT) 18 U/L (15-37); BICARBONATE 27.6 MEQ/L (21.0-32.0); BLOOD UREA NITROGEN 14 MG/DL (7-18); CHLORIDE 104 MEQ/L (98-107); GLOMERULAR FILTRATION RATE 97 ML/MIN (>89); GLUCOSE,FASTING 109 MG/DL (74-99); SODIUM (NA) 139 MEQ/L (136-145)
== END ==
LOC: CLAB 08:16
DX: M06.049 Rheumatoid arthritis without rheumatoid factor, unspecified hand (principal)
CPT/HCPCS: 36415; 80053; 85025; 86140

== ENCOUNTER → 2017-07-29 | Outpatient (CLI) | payer OTHER ==
[2017-07-29 09:07] LABS: BILIRUBIN, URINE NEG (NEG); BLOOD, URINE NEG (NEG); GLUCOSE,URINE NEG (NEG); KETONE, URINE TRACE mg/dL (NEG); MUCUS URINE FEW /lpf (OCC); NITRITE,URINE NEG (NEG); SQUAMOUS EPITHELIAL CELL URINE <1 /hpf (0-5); URINE COLOR YELLOW (YELLW/STRAW); URINE LEUKOCYTE ESTERASE NEG (NEG)
[2017-07-29 09:19] LABS: AUTOMATED NEUTROPHIL # 2.2 TH/MM3 (1.8-7.7); BASOPHIL % 0.8 % (0.0-2.0); EOSINOPHIL # 0.1 TH/MM3 (0-0.4); EOSINOPHIL % 1.7 % (0.0-4.0); HEMATOCRIT 35.8 % (35.0-46.0); HEMOGLOBIN 12.2 GM/DL (11.6-15.3); LYMPH % 24.7 % (9.0-44.0); LYMPHOCYTE # 0.8 TH/MM3 (1.0-4.8); MEAN CELL VOLUME 90.8 FL (80.0-100.0); MEAN CORPUSCULAR HEMOGLOBIN 30.8 PG (27.0-34.0); MEAN PLATELET VOLUME 8.5 FL (7.0-11.0); MONOCYTE # 0.3 TH/MM3 (0-0.9); NEUT % 63.8 % (16.0-70.0); PLATELET COUNT 246 TH/MM3 (150-450); RED BLOOD COUNT 3.95 MIL/MM3 (4.00-5.30); RED CELL DISTRIBUTION WIDTH 13.7 % (11.6-17.2); WHITE BLOOD COUNT 3.4 TH/MM3 (4.0-11.0)
[2017-07-29 09:35] LABS: ALBUMIN 3.9 GM/DL (3.4-5.0); AST (GOT) 18 U/L (15-37); BICARBONATE 28.1 MEQ/L (21.0-32.0); BLOOD UREA NITROGEN 13 MG/DL (7-18); CHLORIDE 103 MEQ/L (98-107); CHOLESTEROL 187 MG/DL (120-200); CREATININE 0.71 MG/DL (0.50-1.00); GLOMERULAR FILTRATION RATE 85 ML/MIN (>89); SODIUM (NA) 137 MEQ/L (136-145); TRIGLYCERIDES 32 MG/DL (42-150)
[2017-07-29 09:37] LABS: GLUCOSE,FASTING 138 MG/DL (74-99)
[2017-07-29 09:49] LABS: ALKALINE PHOSPHATASE 104 U/L (45-117); ALT (GPT) 20 U/L (10-53); CHOLESTEROL/ HDL RATIO 1.74 RATIO; FREE T4 1.25 NG/DL (0.76-1.46); HDL CHOLESTEROL 106.9 MG/DL (40.0-60.0); LDL CHOLESTEROL 74 MG/DL (0-99); TOTAL BILIRUBIN ADULT 0.3 MG/DL (0.2-1.0); TOTAL PROTEIN 7.5 GM/DL (6.4-8.2)
[2017-07-29 16:03] LABS: HEMOGLOBIN A1C 6.6 % (4.3-6.0)
== END ==
LOC: CLAB 08:35
PROVIDERS: ATTEND Internal Medicine
DX: E78.00 Pure hypercholesterolemia, unspecified (principal); I10 Essential (primary) hypertension; E11.9 Type 2 diabetes mellitus without complications
CPT/HCPCS: 36415; 80053; 80061; 81001; 82043; 83036; 84439; 84443; 85025

== ENCOUNTER → 2017-08-12 | Outpatient (CLI) | payer OTHER ==
[2017-08-12 14:57] LABS: RHEUMATOID FACTOR SCREEN NEGATIVE (NEGATIVE)
== END ==
LOC: CLAB 13:49
PROVIDERS: ATTEND Internal Medicine Endocrinology, Diabetes & Metabolism
DX: E10.65 Type 1 diabetes mellitus with hyperglycemia (principal); M06.9 Rheumatoid arthritis, unspecified
CPT/HCPCS: 36415; 82607; 84378; 85652; 86140; 86200; 86430

== ENCOUNTER → 2017-10-31 | Outpatient (CLI) | payer OTHER ==
[2017-10-31 08:04] LABS: AUTOMATED NEUTROPHIL # 1.7 TH/MM3 (1.8-7.7); BASOPHIL % 0.6 % (0.0-2.0); EOSINOPHIL % 1.5 % (0.0-4.0); HEMOGLOBIN 11.9 GM/DL (11.6-15.3); LYMPH % 24.2 % (9.0-44.0); LYMPHOCYTE # 0.6 TH/MM3 (1.0-4.8); MEAN CELL VOLUME 91.7 FL (80.0-100.0); MEAN CORPUSCULAR HEMOGLOBIN 30.4 PG (27.0-34.0); MEAN CORPUSCULAR HGB CONC 33.2 % (32.0-36.0); MEAN PLATELET VOLUME 7.9 FL (7.0-11.0); MONO % 7.9 % (0.0-8.0); MONOCYTE # 0.2 TH/MM3 (0-0.9); NEUT % 65.8 % (16.0-70.0); PLATELET COUNT 231 TH/MM3 (150-450); RED BLOOD COUNT 3.92 MIL/MM3 (4.00-5.30); RED CELL DISTRIBUTION WIDTH 15.6 % (11.6-17.2); WHITE BLOOD COUNT 2.5 TH/MM3 (4.0-11.0)
[2017-10-31 08:22] LABS: AST (GOT) 16 U/L (15-37); BICARBONATE 27.9 MEQ/L (21.0-32.0); BLOOD UREA NITROGEN 17 MG/DL (7-18); CALCIUM 8.7 MG/DL (8.5-10.1); CHLORIDE 104 MEQ/L (98-107); CREATININE 0.67 MG/DL (0.50-1.00); GLOMERULAR FILTRATION RATE 91 ML/MIN (>89); GLUCOSE,FASTING 252 MG/DL (74-99); SODIUM (NA) 140 MEQ/L (136-145)
[2017-10-31 08:26] LABS: WESTERGREN SEDIMENTATION RATE 7 mm/hr (0-30)
[2017-10-31 08:27] LABS: ALKALINE PHOSPHATASE 81 U/L (45-117); ALT (GPT) 24 U/L (10-53); C-REACTIVE PROTEIN LESS THAN 0.29 MG/DL (0.00-0.30); TOTAL BILIRUBIN ADULT 0.5 MG/DL (0.2-1.0); TOTAL PROTEIN 7.3 GM/DL (6.4-8.2)
== END ==
LOC: CLAB 07:32
DX: M06.049 Rheumatoid arthritis without rheumatoid factor, unspecified hand (principal)
CPT/HCPCS: 36415; 80053; 85025; 85652; 86140

== ENCOUNTER → 2017-11-18 | Outpatient (CLI) | payer OTHER ==
[2017-11-18 12:14] LABS: AUTOMATED NEUTROPHIL # 2.3 TH/MM3 (1.8-7.7); BASOPHIL % 0.3 % (0.0-2.0); EOSINOPHIL % 0.6 % (0.0-4.0); HEMATOCRIT 36.2 % (35.0-46.0); LYMPH % 30.1 % (9.0-44.0); LYMPHOCYTE # 1.2 TH/MM3 (1.0-4.8); MEAN CELL VOLUME 93.5 FL (80.0-100.0); MEAN CORPUSCULAR HEMOGLOBIN 31.1 PG (27.0-34.0); MEAN CORPUSCULAR HGB CONC 33.3 % (32.0-36.0); MEAN PLATELET VOLUME 7.8 FL (7.0-11.0); MONO % 8.2 % (0.0-8.0); MONOCYTE # 0.3 TH/MM3 (0-0.9); NEUT % 60.8 % (16.0-70.0); PLATELET COUNT 282 TH/MM3 (150-450); RED BLOOD COUNT 3.87 MIL/MM3 (4.00-5.30); RED CELL DISTRIBUTION WIDTH 15.1 % (11.6-17.2); WHITE BLOOD COUNT 3.9 TH/MM3 (4.0-11.0)
[2017-11-18 12:40] LABS: ALBUMIN 4.5 GM/DL (3.4-5.0); AST (GOT) 17 U/L (15-37); BICARBONATE 27.1 MEQ/L (21.0-32.0); BLOOD UREA NITROGEN 16 MG/DL (7-18); CALCIUM 9.2 MG/DL (8.5-10.1); CHLORIDE 104 MEQ/L (98-107); CREATININE 0.61 MG/DL (0.50-1.00); GLOMERULAR FILTRATION RATE 102 ML/MIN (>89); GLUCOSE,FASTING 111 MG/DL (74-99); SODIUM (NA) 139 MEQ/L (136-145)
[2017-11-18 12:42] LABS: C-REACTIVE PROTEIN LESS THAN 0.29 MG/DL (0.00-0.30); WESTERGREN SEDIMENTATION RATE 8 mm/hr (0-30)
[2017-11-18 12:44] LABS: ALKALINE PHOSPHATASE 93 U/L (45-117); ALT (GPT) 25 U/L (10-53); TOTAL BILIRUBIN ADULT 0.5 MG/DL (0.2-1.0); TOTAL PROTEIN 7.9 GM/DL (6.4-8.2)
== END ==
LOC: CLAB 11:48
DX: M05.741 Rheumatoid arthritis with rheumatoid factor of right hand without organ or systems involvement (principal)
CPT/HCPCS: 36415; 80053; 85025; 85652; 86140